=== PATIENT | male | born 2000 | race Hispanic/Latino ===

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

== ENCOUNTER 2021-10-16 22:53 | Emergency (ER) | payer MEDICAID, OTHER ==
[~2021-10-16] VITALS: Ht 182.9 cm; Wt 104.3 kg
[2021-10-17] MEDS ORDERED: TETANUS/DIPHTHERIA TOXOID [ADULT] 0.5 ML VIAL IM ONE
[2021-10-17] MEDS ORDERED: CEPHALEXIN 250 MG/5 ML BOTTLE PO SCH (00:30)
[2021-10-17] MEDS ORDERED: CIPR500S5 PO (00:37)
[2021-10-17 00:39] VITALS: BP 142/84
== END 2021-10-17 01:14 | disposition home or self-care (01) ==
LOC: EDH 22:53
DX: S91.331A Puncture wound without foreign body, right foot, initial encounter (principal); W45.0XXA Nail entering through skin, initial encounter; Y93.89 Activity, other specified; Y92.89 Other specified places as the place of occurrence of the external cause; Y99.8 Other external cause status
CPT/HCPCS: 73630; 90471; 90714